=== PATIENT | female | born 2000 | race Caucasian/White ===

== ENCOUNTER 2022-04-11 09:19 | Outpatient (CLI) | payer OTHER, SELFPAY ==
[2022-04-11 09:52] LABS: Hematocrit 38.8 % (37.0-47.0); Hemoglobin 13.1 g/dL (12.0-15.0); Mean Corpuscular HGB Conc 33.8 g/dl (32-36); Mean Corpuscular Hemoglobin 30.8 pg (26-34); Mean Corpuscular Volume 91.1 fl (80-100); Mean Platelet Volume 9.1 fl (7.4-10.4); Platelet Count Result 378 k/mm3 (150-375); Red Blood Count 4.26 M/mm3 (4.2-5.4); Red Cell Distribution Width 12.7 % (11.5-14.5); White Blood Count 5.3 K/mm3 (4.5-10.0)
[2022-04-11 10:12] LABS: Alanine Aminotransferase 23 U/L (6-35); Albumin Level 4.4 g/dL (3.5-5.1); Alkaline Phosphatase 63 U/L (38-126); Anion Gap 15 mmol/L (8-16); Aspartate Amino Transferase 22 U/L (14-36); Bilirubin,Total 0.3 mg/dL (0.2-1.3); Blood Urea Nitrogen 9 mg/dL (7-17); CRP 1.3 mg/dL (<1.0); Carbon Dioxide 23 mmol/L (22-30); Chloride 104 mmol/L (98-107); Estimated Glomerular Filt Rate > 60; Glucose 108 mg/dL (65-110); Potassium 3.8 mmol/L (3.4-5.0); Sodium 142 mmol/L (137-145)
[2022-04-11 10:31] LABS: Erythrocyte Sedimentation Rate 19 mm/hr (0-20)
[2022-04-15 18:50] LABS: Tissue Transglutaminase IgG Ab <1.0 U/mL (<15.0)
[2022-04-16 09:21] LABS: Tissue Transglutaminase IgA Ab <1.0 U/mL (<15.0)
== END 2022-04-11 09:20 | disposition home or self-care (01) ==
LOC: ANHLAB 09:21
PROVIDERS: PCP Family Medicine; Visit Provider Nurse Practitioner Family
DX: R19.7 Diarrhea, unspecified (principal)
CPT/HCPCS: 36415; 80053; 83516; 84443; 85027; 85652; 86140

== ENCOUNTER 2022-04-19 09:14 | Outpatient (CLI) | payer OTHER, SELFPAY ==
[2022-04-19 13:06] LABS: Toxigenic C. Diff NEGATIVE (NEGATIVE)
[2022-04-28 22:01] LABS: Calprotectin, Stool 77 mcg/g
== END 2022-04-19 09:15 | disposition home or self-care (01) ==
PROVIDERS: PCP Family Medicine; Visit Provider Nurse Practitioner Family
DX: R19.7 Diarrhea, unspecified (principal)
CPT/HCPCS: 83993; 87045; 87177; 87209; 87427; 87493

== ENCOUNTER 2022-05-11 08:00 | Outpatient (NON) | payer OTHER, SELFPAY | END 2022-05-11 08:01 | disposition home or self-care (01) | PROVIDERS: PCP Family Medicine; Visit Provider Internal Medicine Gastroenterology | DX: D12.3 Benign neoplasm of transverse colon (principal) | CPT/HCPCS: 88305 ==

== ENCOUNTER 2022-05-11 09:39 | Day surgery (SDC) | payer OTHER, SELFPAY ==
[2022-04-15 08:53] VITALS: BMI 36.4
[2022-04-27 10:06] VITALS: BMI 36.3
--- NOTE | 2022-05-11 09:45 | P.PNAN_ITS ---
Anes - Initial Pre Proc Eval Procedure: Operation Date: 05/11/22 13:30 Proposed Procedures p Diagnostic Colonoscopy - Shailesh Epperson MD Date/Time: 05/11/22 09:45 Surgeon: Shailesh Epperson MD Pre Op Diagnosis: Diarrhea and Abdominal Pain Patient Data Age: 22 Gender: F Height: 1.57 m Weight: 90 kg Allergies Allergy/AdvReac Type Severity Reaction Status Date / Time No Known Allergies Allergy Verified 05/11/22 09:59 Home Medications Medication Instructions Recorded Confirmed Type norethindrone 1 mg-e. estradiol 20 1 tablet PO DAILY 11/18/21 05/11/22 History mcg (24)-iron 75 mg (4) chew tablet (Hyun 24 Fe) solifenacin 5 mg tablet (Vesicare) 5 tablet PO DAILY 11/18/21 05/11/22 History dicyclomine 10 mg capsule 10 mg PO BID PRN abdominal 03/31/22 05/11/22 Rx discomfort #20 caps lamotrigine 150 mg tablet 150 mg PO BID #60 tabs 03/31/22 05/11/22 Rx trazodone 50 mg tablet 100 mg PO QHS PRN insomnia #60 tabs 03/31/22 05/11/22 Rx Patient hx anesthesia problems: none Family hx anesthesia problems: none Results Review: All pre-operative results and documents have been reviewed as part of the pre- operative evaluation. [facility] Past Medical History Medical History (Updated 04/11/22 @ 09:03 by Negin Pollack APN-C) Acute sinusitis, unspecified Bladder spasms BMI 34.0-34.9,adult BMI 36.0-36.9,adult BMI 37.0-37.9, adult Diarrhea Dietary counseling and surveillance (03/07/18) Dysfunction of both eustachian tubes Encounter for screening for respiratory tuberculosis (01/12/16) Folliculitis Irritable bowel syndrome with diarrhea Tinea corporis Urinary tract infection symptoms Weight loss, unintentional Family History Family History Father Cataract Mother Thyroid activity decreased Sibling COVID-19 Other Diabetes mellitus Family history of coronary artery disease Family history of thyroid disease Hypertension Social History Social History Smoking status: Never smoker Second hand tobacco smoke exposure: Yes Alcohol intake: never Substance use: never Substance use type: does not use Living arrangements: with family 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 Gender identity (if verbalized by the patient): Female Spiritual care concerns: No Anes - Eval Final PreProcedure Day of Procedure 05/11/22 09:45 Patient weight: obese Heart: regular rate and rhythm Lungs: clear to auscultation Airway: Mallampati scale class II Neurological: alert and oriented Last oral intake: >/= 8 hours ASA classification: II Emergent: no Anesthetic plan: proceed Anesthesia type and monitoring: general GIVS and standard monitoring Results Review: All pre-operative results and documents have been reviewed as part of the pre- operative evaluation. Informed Consent: The patient's anesthetic plan and its attendant risks and benefits were discuss ed with the patient/family/POA. Questions were solicited and answers provided to the satisfaction of the patient/family/POA.
[2022-05-11 10:03] VITALS: BP 140/85; PULSE 112; RESP 20; TEMP 36.8; O2SAT 100
[2022-05-11] MEDS: LACTATED RINGERS 1,000 ML 150 ML IV CONT (10:12)
--- NOTE | 2022-05-11 10:50 | WPDHPUPDATE1 ---
History and Physical Update Update Date/Time: 05/11/22 10:50 History and Physical has been reviewed, including an updated exam of the patient. There are NO changes in the patient's condition. Risks, benefits, and alternatives have been discussed and questions answered. Patient agrees to proceed with procedure.
[2022-05-11 11:09] VITALS: BP 114/63; PULSE 107; RESP 16; O2SAT 100
[2022-05-11 11:20] VITALS: BP 114/63; PULSE 108; RESP 16; O2SAT 100
[2022-05-11 11:30] VITALS: BP 115/76; PULSE 104; RESP 16
--- NOTE | 2022-05-11 11:59 | SUR.PHASEII ---
PT AWAKE AND ALERT. DENIES PAIN. STATES READY TO GO HOME.
--- NOTE | 2022-05-11 13:22 | WPDANESPN ---
Anes - Prog Note Post-Op Date/Time: 05/11/22 13:22 Cardiovascular status: normal Respiratory status: normal Airway patency: baseline Mental status: baseline Post-Op hydration status: normal Vital Signs: Last Vital Signs Temp 36.8 C 05/11/22 10:03 Pulse 104 H 05/11/22 11:30 Resp 16 05/11/22 11:30 BP 115/76 05/11/22 11:30 Pulse Ox 100 05/11/22 11:20 O2 Del Method Room Air 05/11/22 11:30 Pain Score (VAS): 0 I/O: Intake & Output 05/10/22 05/11/22 05/11/22 23:59 07:59 15:59 Intake Total 550 Output Total 1 Balance 549 Post-procedural complaints: none Patient Feedback: Patient satisfied with anesthetic care. Other Findings: Patient vital signs back to baseline. Patient denies nausea and vomiting. Patient's pain under control. Patient OK for discharge.
== END 2022-05-11 12:00 | disposition home or self-care (01) ==
PROVIDERS: PCP Family Medicine; Visit Provider Internal Medicine Gastroenterology
PROC: 0DJD8ZZ Inspection of Lower Intestinal Tract, Via Natural or Artificial Opening Endoscopic (ICD-10-PCS; CPT 45378; principal; 2022-05-11 13:30)
DX: K58.9 Irritable bowel syndrome, unspecified (principal)
CPT/HCPCS: 45385; 45380